=== PATIENT | female | born 2000 ===

== ENCOUNTER 2020-11-15 23:59 | Emergency (ER) | payer SELFPAY ==
[~2020-11-15] VITALS: Ht 165.1 cm; Wt 50.0 kg
--- NOTE | 2020-11-16 00:10 | NUR ---
Pt non responsive to painful stimuli, o2 sat down to 88%, minimal gag. R nares NPA placed, barely moved. o2 sat up to 97%.
[2020-11-16] MEDS ORDERED: SODIUM CHLORIDE FLUSH 10ML SYR IVF ONE (00:30)
[2020-11-16] MEDS ORDERED: THIAMINE 100 MG in SODIUM CHLORIDE 0.9% 50 ML IVPB ONE (00:30)
[2020-11-16] MEDS ORDERED: SODIUM CHLORIDE 0.9% 1,000ML IVBOLUS ONE (00:30)
[2020-11-16 02:58] VITALS: BP 103/66
--- NOTE | 2020-11-16 02:59 | NUR ---
BREAK RN: PT RESTING ON GURNEY, NAD, APPEARS COMFORTABLE AFTER BEING REPOSITIONED IN GURNEY, RESPONSIVE TO VERBAL STIMULI, BED IN LOWEST, RAILS ENGAGED, CALL LIGHT ON LAP, RESTING UNDER BLANKETS. MONITORING IN PLACE, [facility].
--- NOTE | 2020-11-16 03:37 | NUR ---
PT UP TO BEDSIDE COMMODE, STEADY GAIT. AWAITING RIDE HOME
--- NOTE | 2020-11-16 03:50 | NUR ---
PT AMBULATORY WITH STEADY GAIT. PT WALKED WITH STEADY GAIT TO BATHROOM. NO ADDITIONAL NEEDS. AWAITING D/C.
--- NOTE | 2020-11-16 04:00 | NUR ---
PT AMBULATORY WITH STEADY GAIT UPON D/C, [facility]AXI VOUCHER HOME GIVEN
== END 2020-11-16 04:14 | disposition home or self-care (01) ==
LOC: EDBD 23:59 → ED 11-16 04:05
DX: F10.120 Alcohol abuse with intoxication, uncomplicated (principal); Y90.0 Blood alcohol level of less than 20 mg/100 ml
CPT/HCPCS: 96365; 99284; J3411; J7030